=== PATIENT | female | born 1995 | race American Indian/Alaskan Native ===

== ENCOUNTER 2016-09-18 22:10 | Emergency (ER) | payer MEDICAID, OTHER ==
[2016-09-19 00:53] LABS: Basophils % (Auto) 0.4 % (0.0-1.8); Hematocrit 34.6 % (30.3-42.9); Hemoglobin 11.2 gm/dl (10.1-14.3); Mean Corpuscular HGB Conc 32 % (30-34); Mean Corpuscular Hemoglobin 28 pg (28-32); Mean Corpuscular Volume 86 fl (79-97); Platelet Count 233 K/mm3 (140-440); Red Cell Distribution Width 14.1 % (13.2-15.2); White Blood Count 10.2 K/mm3 (4.5-11.0)
[2016-09-19 01:15] LABS: Alanine Aminotransferase 11 units/L (7-56); Albumin 4.1 g/dL (3.9-5); Albumin/Globulin Ratio 1.4 %; Alkaline Phosphatase 96 units/L (35-129); Anion Gap 22 mmol/L; BUN/Creatinine Ratio 13.33; Blood Urea Nitrogen 8 mg/dL (7-17); Calcium 9.2 mg/dL (8.4-10.2); Carbon Dioxide 24 mmol/L (22-30); Chloride 102.5 mmol/L (98-107); Glucose 95 mg/dL (65-100); Lipase 15 units/L (13-60); Potassium 4.1 mmol/L (3.6-5.0); Sodium 144 mmol/L (137-145); Total Protein 7.1 g/dL (6.3-8.2)
--- NOTE | 2016-09-19 01:22 | Emergency Department Report ---
HPI - General Chief Complaint: Abdominal Pain Time Seen by Provider: 09/19/16 01:05 - HPI HPI: This is a 21-year-old Afro-[place]gas[place] female who presents the emergency department , dropped off by her mother, with complaint of some mid abdominal pain going on for the past 3 days. It is currently 5 out of 10 in intensity and intermittent and sharp. She denies any nausea, vomiting, fever, dysuria, vaginal bleeding, vaginal discharge, back pain but she does have some loose stool or diarrhea. She is not taken anything for symptoms prior to presentation. She does not have any past medical history. She does not have a primary care physician. No recent travel or sick contacts at home. ED Past Medical Hx - Past Medical History Previous Medical History?: Yes Hx Hypertension: No Hx Congestive Heart Failure: No Hx Diabetes: No Hx Deep Vein Thrombosis: No Hx Renal Disease: No Hx Sickle Cell Disease: No Hx Seizures: No Hx Asthma: Yes Hx COPD: No Hx HIV: No - Social History Smoking Status: Never Smoker - Medications Home Medications: Home Medications Medication Instructions Recorded Confirmed Last Taken Type traMADol [Ultram] 50 mg PO Q6HR PRN #8 tablet 09/19/16 Unknown Rx ED Review of Systems ROS: Stated complaint: ABD PAIN Other details as noted in HPI Comment: All other systems reviewed and negative Constitutional: denies: chills, fever Eyes: denies: eye pain, eye discharge, vision change ENT: denies: ear pain, throat pain Respiratory: denies: cough, shortness of breath, wheezing Cardiovascular: denies: chest pain, palpitations Gastrointestinal: abdominal pain, diarrhea. denies: nausea, vomiting Genitourinary: denies: urgency, dysuria, discharge Musculoskeletal: denies: back pain, joint swelling, arthralgia Skin: denies: rash, lesions Neurological: denies: headache, weakness, paresthesias Physical Exam - Physical Exam Vital Signs: Vital Signs 09/19/16 09/19/16 09/19/16 00:16 00:25 01:04 Temperature 99.5 F 99.5 F Pulse Rate 93 H 93 H 92 H Respiratory 20 20 18 Rate Blood Pressure 112/76 117/68 Blood Pressure 112/76 [Right] O2 Sat by Pulse 100 100 100 Oximetry 09/19/16 01:14 Temperature Pulse Rate Respiratory 16 Rate Blood Pressure Blood Pressure [Right] O2 Sat by Pulse 99 Oximetry Physical Exam: GENERAL: The patient is well-developed well-nourished. HEENT: Normocephalic. Atraumatic. Extraocular motions are intact. Patient has moist mucous membranes. Pupils equal reactive to light bilaterally. NECK: Supple. Trachea is midline. CHEST/LUNGS: Clear to auscultation. There is no respiratory distress noted. HEART/CARDIOVASCULAR: Regular. There is no tachycardia. There is no gallop rub or murmur. ABDOMEN: Abdomen is soft. There is some tenderness to palpation to the mid abdomen. No guarding or rebound tenderness. No peritoneal signs. Patient has normal bowel sounds. There is no abdominal distention. SKIN: Skin is warm and dry. NEURO: The patient is awake, alert, and oriented. The patient is cooperative. The patient has no focal neurologic deficits. The patient has normal speech. MUSCULOSKELETAL: There is no tenderness or deformity. There is no limitation range of motion. There is no evidence of acute injury. ED Course Vital Signs 09/19/16 09/19/16 09/19/16 00:16 00:25 01:04 Temperature 99.5 F 99.5 F Pulse Rate 93 H 93 H 92 H Respiratory 20 20 18 Rate Blood Pressure 112/76 117/68 Blood Pressure 112/76 [Right] O2 Sat by Pulse 100 100 100 Oximetry 09/19/16 01:14 Temperature Pulse Rate Respiratory 16 Rate Blood Pressure Blood Pressure [Right] O2 Sat by Pulse 99 Oximetry ED Medical Decision Making - Lab Data Result diagrams: 09/19/16 00:36 09/19/16 00:36 - Radiology Data Radiology results: report reviewed, image reviewed interpreted by me: Abdominal x-ray shows some nonspecific nonobstructive bowel gas and a few air- fluid levels. PROCEDURE: CT ABDOMEN PELVIS W CON TECHNIQUE: Computerized axial tomography of the abdomen and pelvis was performed after the IV injection of iodinated nonionic contrast. HISTORY: abd pain COMPARISON: No prior studies are available for comparison. FINDINGS: Visualized lower thorax: No significant abnormality. Liver: There is an area of hypoattenuation identified in the anterior medial right lobe of the liver, focal fatty infiltration in this region is suspected.. Spleen: Normal size and attenuation. Gallbladder and biliary system: Normal. Pancreas: Normal. Adrenals: Normal. Kidneys: Normal. GI tract: The stomach is normal. The small bowel has a normal caliber. No obstruction, ileus or enteritis. The cecum, appendix and colon are normal.. Lymph nodes and mesentery: Normal. Vasculature: Normal. Bladder: Normal. Reproductive organs: The uterus is retroverted. No pelvic masses.. Peritoneum: No free fluid. Musculoskeletal structures: No significant abnormality. Other: None. IMPRESSION: There is no evidence of intestinal or urinary tract obstruction. No ileus or enteritis. - Medical Decision Making This is a 21-year-old female presents emergency Department with a three-day history of some intermittent mid abdominal pain. There is no nausea, vomiting, fever, diarrhea, discharge, dysuria or vaginal bleeding. Her labs are unremarkable and do not show any etiology of her symptoms. There is no leukocytosis, electrolyte abnormalities, renal insufficiency. She has normal belly labs included bilirubin, lipase and LFTs. There is no urinary tract infection and the patient is not . Abdominal x-ray showed some air- fluid levels but otherwise nonobstructive gas pattern. A CT of the abdomen and pelvis with IV contrast was done that came back showing a normal examination without any intestinal or urinary tract obstruction or any acute process. The patient was reevaluated multiple times over multiple hours and appears improved. Prior to discharge the patient is sleeping and had to be woken up to tell her the CT results. She will be given a small amount of pain medication and referrals for primary care and gastroenterology. She'll be encouraged to return to the ER with any worsening of her symptoms or any acute distress. - Differential Diagnosis , gastroenteritis, colitis, diverticulitis, gastritis Critical Care Time: No Critical care attestation.: If time is entered above; I have spent that time in minutes in the direct care of this critically ill patient, excluding procedure time. ED Disposition Clinical Impression: Abdominal pain Qualifiers: Abdominal location: periumbilical Qualified Code(s): R10.33 - Periumbilical pain Disposition: DC-01 TO HOME OR SELFCARE Is pt being admited?: No Condition: Stable Instructions: Abdominal Pain (ED) Additional Instructions: Please follow-up with a primary care physician in the next few days. I've also given you a referral for a local blue prints trimmer, Dr. Manuel, to follow-up regarding your abdominal pain. Return to the emergency department with any worsening of your symptoms or any acute distress. You've been prescribed a medication that is sedating. Therefore this medication cannot be mixed with alcohol, or taken prior to driving, working, or being responsible for children. Prescriptions: traMADol [Ultram] 50 mg PO Q6HR PRN #8 tablet PRN Reason: Pain Referrals: PRIMARY CARE, [Primary Care Provider] - 3-5 Days KOKO DIXON MD [Staff Physician] - 3-5 Days JEANETTE MANUEL MD [Staff Physician] - 3-5 Days [facility] [Outside] - 3-5 Days Time of Disposition: 04:00
[2016-09-19] MEDS ORDERED: NACL 0.9% 1000 ML 1,000 ML IV ONE (01:31)
[2016-09-19 01:43] LABS: Bilirubin,Urine NEG (Negative); Blood,Urine NEG (Negative); Ketones,Urine NEG (Negative); Leukocyte Esterase,Urine TR (Negative); Mucus,Urine FEW /HPF; Nitrite,Urine NEG (Negative); Protein,Urine <15 mg/dL mg/dL (Negative)
[2016-09-19] MEDS ORDERED: NACL ONE (02:41)
--- NOTE | 2016-09-19 03:41 | Cat Scan Report ---
FINAL REPORT PROCEDURE: CT ABDOMEN PELVIS W CON TECHNIQUE: Computerized axial tomography of the abdomen and pelvis was performed after the IV injection of iodinated nonionic contrast. HISTORY: abd pain COMPARISON: No prior studies are available for comparison. FINDINGS: Visualized lower thorax: No significant abnormality. Liver: There is an area of hypoattenuation identified in the anterior medial right lobe of the liver, focal fatty infiltration in this region is suspected.. Spleen: Normal size and attenuation. Gallbladder and biliary system: Normal. Pancreas: Normal. Adrenals: Normal. Kidneys: Normal. GI tract: The stomach is normal. The small bowel has a normal caliber. No obstruction, ileus or enteritis. The cecum, appendix and colon are normal.. Lymph nodes and mesentery: Normal. Vasculature: Normal. Bladder: Normal. Reproductive organs: The uterus is retroverted. No pelvic masses.. Peritoneum: No free fluid. Musculoskeletal structures: No significant abnormality. Other: None. IMPRESSION: There is no evidence of intestinal or urinary tract obstruction. No ileus or enteritis.
[2016-09-19] MEDS ORDERED: MORPHINE IV ONE (03:58)
[2016-09-19] MEDS ORDERED: TORADOL IV ONE (04:22)
[2016-09-19 04:36] VITALS: BP 112/72
--- NOTE | 2016-09-19 07:23 | XRay Report ---
ABDOMEN, 2 VIEWS: History: Abdominal pain. Findings: Multiple small air-fluid levels are identified throughout the abdomen. No dilated bowel or free air is identified. No pathologic calcifications. Normal stool in the colon. The visualized lung bases are clear. Heart size appears normal. Impression: Findings consistent with gastroenteritis or a mild diffuse ileus. No acute abdominal findings.
== END 2016-09-19 04:30 | disposition home or self-care (01) ==
LOC: ED 22:10
DX: R10.33 Periumbilical pain (principal); J45.909 Unspecified asthma, uncomplicated
CPT/HCPCS: 36415; 74020; 74177; 80053; 81001; 81025; 83690; 85025; 96361; 96374; 99284; J1885; J7030; Q9967